=== PATIENT | female | born 1990 | race Caucasian/White ===

== ENCOUNTER 2017-05-04 23:09 | Emergency (ER) | payer SELFPAY, OTHER ==
[2017-05-05] MEDS: IBUPROFEN 600 MG TAB PO (04:39)
[2017-05-05] MEDS: BENZONATATE 100 MG CAP PO (05:05)
== END 2017-05-05 05:48 | disposition home or self-care (01) ==
LOC: FTE 23:09
DX: J18.1 Lobar pneumonia, unspecified organism (principal)
CPT/HCPCS: 71046; 81025; 99284-25